=== PATIENT | female | born 1970 | race Caucasian/White ===

== ENCOUNTER 2018-11-14 00:28 | Outpatient (CLI) | payer BC, SELFPAY ==
--- NOTE | 2018-11-14 06:59 | DI.US_ITS ---
SYMPTOM/DIAGNOSIS: ENLARGED UTERUS 16-18 WEEK SIZE, PELVIC PROCESS N85.2 PELVIC ULTRASOUND: A transabdominal and transvaginal examination was carried out. The uterus measures 11.2 cm in length, 7.4 cm in height and 9.0 cm in width with an endometrial stripe thickness of 10.8 mm. There are numerous fibroids. A fundal fibroid measures up to 8.6 x 8.5 x 7.9 cm. Anterior and posterior uterine body fibroids measure up to 3.6 4.7 5.1 cm. An exophytic posterior fibroid measures up to 5.6 x 4.3 x 6.3 cm. The ovaries were not visualized. The right kidney measures 9.7 cm. Mild hydronephrosis is demonstrated. The left kidney measures 11.8 cm and is unremarkable. SUMMARY: There are numerous uterine fibroids. Note is made of mild hydronephrosis involving the right kidney.
--- NOTE | 2018-11-14 10:00 | DI.MAMMO_ITS ---
SYMPTOM/DIAGNOSIS: SCREENING Z12.31 MAMMOGRAMS: Mammograms were interpreted according to the usual protocol including computer analysis with CAD system, tomosynthesis and C view imaging. The breast tissue is heterogeneously radiodense which lowers the sensitivity of the examination. There is no suspicious calcifications. There has been no significant interval change when compared with prior images. SUMMARY: No evidence of malignancy, Category 1, yearly screening mammography is recommended. Breast density category C. MQSA ASSESSMENT OF FINDINGS: Negative. Category 1. Patient will receive a letter notifying them of these results. Bi-RADS category C. The breasts are heterogeneously dense, which may obscure small masses.
== END 2018-11-14 00:48 ==
PROVIDERS: PCP Family Medicine; Visit Provider Nurse Practitioner Family
DX: Z12.31 Encounter for screening mammogram for malignant neoplasm of breast (principal); N85.2 Hypertrophy of uterus; D25.9 Leiomyoma of uterus, unspecified; N13.30 Unspecified hydronephrosis
CPT/HCPCS: 77063; 77067; 76830; 76856

== ENCOUNTER 2018-12-04 14:57 | Outpatient (CLI) | payer BC, SELFPAY ==
[2018-12-05 17:57] LABS: Estradiol 139 pg/ml
[2018-12-06 10:05] LABS: LH 5.2 mIU/ml
[2018-12-06 10:09] LABS: FSH 8.1 mIU/ml
== END 2018-12-04 15:17 ==
PROVIDERS: PCP Family Medicine; Visit Provider Obstetrics & Gynecology
DX: N92.6 Irregular menstruation, unspecified (principal)
CPT/HCPCS: 36415; 82670; 83001; 83002

== ENCOUNTER 2018-12-10 01:22 | Outpatient (CLI) | payer BC, SELFPAY ==
--- NOTE | 2018-12-10 08:26 | DI.US_ITS ---
SYMPTOM/DIAGNOSIS: RT HYDRONEPHROSIS PROB DUE TO FIBROID, N13.30 RENAL ULTRASOUND: Routine examination. Comparison is made with 11/14/18. The right kidney measures 10.3 cm. in length. No renal mass or calculus is identified. There is mild prominence of the right renal collecting system. This has decreased in size compared to the examination from 11/14/18. There is blood flow seen to the right kidney. The left kidney measures 10.7 cm. long. No renal mass, calculus or obstruction is identified. There is blood flow to the left kidney. The prevoid urinary bladder volume is 105 cc's. The bladder wall appeared smooth. No intraluminal mass is seen. Both ureteral jets were visualized. Postvoid urinary bladder volume is 20 cc's. IMPRESSION: Interval decrease in size of the distension of the right renal collecting system suggesting improving right hydronephrosis.
== END 2018-12-10 01:42 ==
PROVIDERS: PCP Family Medicine; Visit Provider Urology
DX: N13.39 Other hydronephrosis (principal)
CPT/HCPCS: 76770

== ENCOUNTER 2019-01-31 08:23 | Day surgery (SDC) | payer BC, SELFPAY ==
[2019-01-31 08:41] VITALS: BP 115/77; PULSE 87; RESP 16; TEMP 36.4; O2SAT 100
[2019-01-31] MEDS: Lactated Ringers 1,000 ML 80 ML IV (08:55)
--- NOTE | 2019-01-31 09:21 | W.PM.DSUDISC ---
Discharge Plan Disposition Patient Disposition: HOME Condition: Good Discharge Details Reason For Visit: Colonoscopy Attending Provider: Eva Holt Primary Care Provider: David Blanchard Home Meds and New Rx's Prescriptions: Continued loratadine-pseudoephedrine [Claritin-D 24 Hour] 10-240 mg tablet extended release 24 hr 1 tab PO DAILY RF: 0 venlafaxine [Effexor XR] 37.5 mg capsule,extended release 24hr 37.5 mg PO DAILY Qty: 30 RF: 2 Discharge Instructions Additional Instructions: Findings: Your colonoscopy showed mild diverticulosis Follow up: Plan for a screening colonoscopy in 10 years or sooner if symptoms arise. Please call if you develop: fevers >101.5 Nausea or Vomiting Abdominal pain that is not transient DAY SURGERY UNIT POST COLONOSCOPY INSTRUCTIONS 1. Because there will be medication in your system for the next 24 hours, you may feel a little sleepy. Your coordination will be affected. Therefore: a. Do not drive or operate dangerous equipment for 24 hours. b. Do not drink alcohol beverages for 24 hours (not even beer). c. Plan to go home and rest for the day. 2. Generally there are no restrictions on your activity after a day or so has gone by, but you may feel a bit fatigued for a few days. 3 After you arrive home you may have a light meal and return to a normal diet as you can tolerate it without feeling sick to your stomach. 4. After surgery, you may feel pain or discomfort. This should be only transient, but if it persists please contact your doctor. 5. If there are any questions regarding the findings of your procedure, please feel free to contact your doctor. 6. If you are unable to contact your doctor with a problem, contact the hospital at [phone]. 7. Continue all your regular medications unless directed otherwise. I understand the above instructions and have no questions. Signature of Patient or Responsible Adult Escort Date/Time Name of Responsible Adult Escort Signature of Nurse Date/Time Activity:: Activity as Tolerated Diet:: As Tolerated Discharge Orders Discharge Orders: Discharge Order (Routine); Ordered 01/31/19 Ordered By: Eva Holt DS: Diagnosis Discharge Diagnosis (1) Diverticulosis: Status: Acute (2) Hx of colonoscopy:
[2019-01-31 10:20] VITALS: BP 113/79; PULSE 59; RESP 16; TEMP 36.3; O2SAT 100
--- NOTE | 2019-01-31 10:45 | COLE_ITS ---
DATE OF PROCEDURE: January 31, 2019 PREOPERATIVE DIAGNOSIS: Screening. POSTOPERATIVE DIAGNOSIS: Mild diverticulosis. PROCEDURE: Colonoscopy. SURGEON: Eva Holt M.D. ANESTHESIA: General. INDICATIONS: This is a 48-year-old woman who presents for her first screening colonoscopy. She did have an episode of crampy left lower quadrant pain earlier this summer, followed by some loose stool with bloody mucus. There is no family history of colon cancer. PROCEDURE: She was placed in the left Rodriguez position. Propofol was titrated to sedation. Digital re ctal examination revealed no abnormalities. The scope was advanced to the cecum without difficulty. The ileocecal valve and appendiceal orifice were clearly identified. The scope was slowly withdrawn with no abnormalities seen within the ascending, transverse or descending colon. The sigmoid region revealed mild diverticular change. The rectum was normal, including on retroflex view. She tolerat ed the procedure well and was stable to recovery. She will need a follow-up screening again in 10 years or sooner if symptoms indicate. cc: David Blanchard M.D.
== END 2019-01-31 10:33 | disposition home or self-care (01) ==
PROVIDERS: PCP Family Medicine; Visit Provider Surgery
PROC: 0DJD8ZZ Inspection of Lower Intestinal Tract, Via Natural or Artificial Opening Endoscopic (ICD-10-PCS; CPT 45378; principal; 2019-01-31 10:00)
DX: Z12.11 Encounter for screening for malignant neoplasm of colon (principal); K57.30 Diverticulosis of large intestine without perforation or abscess without bleeding
CPT/HCPCS: 45378; 81025

== ENCOUNTER 2019-03-31 01:28 | Outpatient (CLI) | payer BC, SELFPAY ==
--- NOTE | 2019-03-31 14:10 | DI.US_ITS ---
EXAM: US PELVIS AND TRANSVAGINAL CLINICAL HISTORY: uterine fibroids compare size, D21.9 TECHNIQUE: Ultrasound performed using standard protocol. Transabdominal and transvaginal exams wer e performed. The transvaginal exam is limited by shadowing from fibroids. The transabdominal exam i s limited by suboptimal bladder distention. COMPARISON: US pelvis from 11/14/2018 FINDINGS: The uterus measures 11.7 x 9 x 10.2 cm. Multiple fibroids again noted. The largest fibroid measures 7.6 x 6.8 x 5.9 cm. A 2nd fibroid seen towards the right and posterior measures 4.4 x 4.3 x 6 4 cm. No free fluid or hydronephrosis is seen. The right ovary was not able to be visualized. The left ovary was only seen transabdominally but appears normal in size and appearance. IMPRESSION: Multiple uterine fibroids. The overall uterine size is not significantly changed. The fibroids were difficult to measure.
== END 2019-03-31 01:48 ==
PROVIDERS: PCP Family Medicine; Visit Provider Obstetrics & Gynecology
DX: D25.9 Leiomyoma of uterus, unspecified (principal)
CPT/HCPCS: 76830; 76856

== ENCOUNTER 2019-04-15 09:37 | Outpatient (CLI) | payer BC, SELFPAY ==
[2019-04-15 10:57] LABS: Anion Gap 8.5 mmol/L (3-11); BUN 13 mg/dL (7-18); CO2 27.5 mmol/L (21.0-32.0); CREATININE 0.59 mg/dL (0.55-1.02); Calcium 8.5 mg/dL (8.5-10.1); Chloride 104 mmol/L (98-107); Glucose 99 mg/dL (70-100); Sodium 140 mmol/L (136-145)
== END 2019-04-15 09:57 ==
PROVIDERS: PCP Family Medicine; Visit Provider Obstetrics & Gynecology
DX: N13.30 Unspecified hydronephrosis (principal)
CPT/HCPCS: 36415; 80048

== ENCOUNTER 2020-02-06 15:27 | Outpatient (REF) | payer BC, SELFPAY ==
--- NOTE | 2020-02-06 15:00 | PAPFT_PTH ---
PATIENT: FANG LANDIN LOC: [facility] U#:[id number] AGE/SX: 49/F ROOM: RE02/06/[address]: EARL Esparza : 1970 BED: DIS: 02/06/2020 SPEC #: [id number] RECD: 02/06/20 16:57 STATUS: GENEVIEVE REQ #: [id number] ESTEVAN: 02/06/20 15:[address]: Poly Cardoso DEPT: [facility] Cytology RECD BY: Antonietta Sánchez ENTERED: 02/06/20 16:58 SP TYPE: PAPFT ABIGAIL DR: David Blanchard MD Tissues: 1 - CX/ENDOCX FOR PAP SMEARS Procedures: PAP THIN PREP/UVM Screening HPV DNA PROBE Comments: [id number]
== END 2020-02-06 15:47 ==
LOC: LBN 15:27
PROVIDERS: PCP Family Medicine; Visit Provider Nurse Practitioner Family
DX: Z12.4 Encounter for screening for malignant neoplasm of cervix (principal); Z11.51 Encounter for screening for human papillomavirus (HPV)
CPT/HCPCS: 88142; 87624

== ENCOUNTER 2020-04-15 01:14 | Outpatient (CLI) | payer BC, SELFPAY ==
--- NOTE | 2020-04-15 | DI.US_ITS ---
EXAM: US PELVIS TRANSVAGINAL CLINICAL HISTORY: ABNL UTERINE BLEEDINTG,N93.9, F/U FIBROIDS. TECHNIQUE: Transabdominal and transvaginal pelvic ultrasound was performed using standard protocol. COMPARISON: No exams were available for comparison FINDINGS: KIDNEYS: Kidneys are symmetric in size. No evidence of renal calculi. Mild right hydronephrosis. No renal mass or cyst identified. UTERUS: Position: Anteverted. Size: 13.8 long by 10 AP by 11.7 transverse cm Endometrium: 0.9 cm. Normal for patient's menstrual status. Myometrium: Multiple hypoechoic masses are seen within the uterus consistent with fibroids. The larg est measures 7.5 x 8.1 x 7.7 cm. This compares with 11.7 x 9 x 10.2 cm on the examination from 2018. Cervix: Unremarkable. OVARIES: Right: 2.7 x 2 x 1.9 cm Cyst or mass: There is a 1.6 x 1.7 x 1.3 cm functional right ovarian cyst. Left: The left ovary was not visualized transabdominally or transvaginally. DOPPLER: Color: Symmetric and uniform flow to the visualized right ovary. No hyperemia. CUL-DE-SAC: Free fluid: None. Other: None. IMPRESSION: 1. Mild right hydronephrosis. 2. Enlarged fibroid uterus. 3. Unremarkable right ovary. Left ovary not visualized transabdominally or transvaginally. DATA REPOSITORY:
== END 2020-04-15 01:34 ==
PROVIDERS: PCP Family Medicine; Visit Provider Obstetrics & Gynecology
DX: N93.9 Abnormal uterine and vaginal bleeding, unspecified (principal); N13.30 Unspecified hydronephrosis; N85.2 Hypertrophy of uterus
CPT/HCPCS: 76830; 76856